=== PATIENT | male | born 1970 | race Caucasian/White ===

== ENCOUNTER 2021-05-22 00:23 | Emergency (ER) | payer SELFPAY ==
[~2021-05-22] VITALS: Ht 172.7 cm; Wt 61.4 kg
[2021-05-22] MEDS ORDERED: CEPHALEXIN500 M1 PO (01:52)
[2021-05-22 02:30] VITALS: BP 116/61; PULSE 70; TEMP 97.9
== END 2021-05-22 02:30 | disposition home or self-care (01) ==
LOC: COL.ER 00:23
DX: S60.551A Superficial foreign body of right hand, initial encounter (principal); W45.8XXA Other foreign body or object entering through skin, initial encounter